=== PATIENT | male | born 1950 | race Caucasian/White ===

== ENCOUNTER → 2025-05-22 14:42 | Outpatient (REF) | payer MEDICARE, OTHER, SELFPAY | LOC: MRI 14:42 | PROVIDERS: ATTENDING PHYSICIAN Internal Medicine Transplant Hepatology; FAMILY PHYSICIAN Nurse Practitioner Primary Care | DX: K73.2 Chronic active hepatitis, not elsewhere classified (principal) | CPT/HCPCS: 74181; 76391 ==